=== PATIENT | male | born 1960 | race Caucasian/White ===

== ENCOUNTER 2018-05-21 10:08 | Outpatient (CLI) | payer BC, SELFPAY ==
--- NOTE | 2018-05-21 10:35 | DI.RAD_ITS ---
SYMPTOM/DIAGNOSIS: BILAT HIP PAIN, M25.551 BILATERAL HIPS: No priors. In the right hip, there is moderate joint space narrowing and mild steve-articular spurring of the acetabulum and the femoral head. In the left hip , there is mild joint space narrowing and steve-articular spurring of the acetabulum and femoral head. There are moderate degenerative changes seen in the lower lumbar spine. The sacroiliac joints and symphysis appear intact. No acute fracture or dislocation is seen. The soft tissues are unremarkable. Vascular calcifications are seen. IMPRESSION: Osteoarthritis of the hips, right greater than left. Moderate degenerative changes noted in the lower lumbar spine.
== END 2018-05-21 10:28 ==
PROVIDERS: PCP Nurse Practitioner Family; Visit Provider Nurse Practitioner Family
DX: M25.551 Pain in right hip (principal); M25.552 Pain in left hip; M16.0 Bilateral primary osteoarthritis of hip
CPT/HCPCS: 73521

== ENCOUNTER 2018-10-22 09:36 | Outpatient (CLI) | payer BC, SELFPAY ==
[2018-10-22 10:46] LABS: Abs Immature Grans 0.04 k/cumm (0.0-0.09); Absolute Basophil Count 0.03 k/cumm (0.0-0.2); Absolute Eosinophil Count 0.44 k/cumm (0.0-0.7); Absolute Lymphocyte Count 3.07 k/cumm (1.2-3.4); Basophils % 0.3; Eosinophils % 3.9; HCT 43.5 % (40.0-50.0); HGB 14.7 g/dL (13.5-17.5); Immature Grans % 0.4; Lymphocytes % 26.9; Mean Corp. HGB Concentration 33.8 g/dL (32.0-36.0); Mean Corpuscular Hemoglobin 30.9 pg (27.0-33.0); Mean Corpuscular Volume 91.6 fL (80-95); Mean Platelet Volume 9.3 fL (8.0-11.0); Monocytes % 7.9; Neutrophils % 60.6; Platelet Count 343 x1000/uL (130-400); RBC 4.75 m/cumm (4.50-6.00); RBC Distribution Width 13.1 % (11.8-14.1)
[2018-10-22 10:47] LABS: Absolute Neutrophil Count 6.91 k/cumm (1.2-6.7)
== END 2018-10-22 09:56 ==
PROVIDERS: PCP Nurse Practitioner Family; Visit Provider Nurse Practitioner Family
DX: R06.09 Other forms of dyspnea (principal)
CPT/HCPCS: 36415; 85025

== ENCOUNTER 2018-10-22 11:39 | Outpatient (CLI) | payer BC, SELFPAY ==
--- NOTE | 2018-10-22 09:30 | DI.RAD_ITS ---
SYMPTOM/DIAGNOSIS: ? PULMONARY FIBROSIS, MILD INTERMITTENT ASTHMA, DYSPNEA ON EXERTION, J45.20, R06.09 PA AND LATERAL CHEST: Comparison is made with 02/12/15. Heart size and pulmonary vasculature are within normal limits. The lungs are clear. No significant interstitial disease is present. No effusions or pneumothoraces are identified. The lungs appear hyperinflated suggesting underlying COPD. Degenerative changes are seen in the spine. IMPRESSION: Findings suggestive of COPD. If there is continued concern for interstitial disease, a noncontrast high resolution CT scan may be considered.
== END 2018-10-22 11:59 ==
PROVIDERS: PCP Nurse Practitioner Family; Visit Provider Nurse Practitioner Family
DX: R06.09 Other forms of dyspnea (principal); J45.20 Mild intermittent asthma, uncomplicated; J44.9 Chronic obstructive pulmonary disease, unspecified
CPT/HCPCS: 71046

== ENCOUNTER 2018-11-01 00:32 | Outpatient (CLI) | payer BC, SELFPAY ==
--- NOTE | 2018-11-01 14:00 | MERGE_ITS ---
*[facility]* *[facility]* [address] [place] [address] Date of study: 11/01/2018 Transthoracic Echocardiography M-mode, complete 2D, complete spectral Doppler, and color Doppler *STUDY CONCLUSIONS* Impressions: Normal LV/RV, mildly dilated aortic root. Summary: 1. Left ventricle: The cavity size was normal. Wall thickness was increased in a pattern of mild LVH. Systolic function was normal. The estimated ejection fraction was 55-60%. Wall motion was normal; there were no regional wall motion abnormalities. 2. Aortic root: The aortic root was mildly dilated. 3. Ascending aorta: The ascending aorta was at upper normal limits. 4. Mitral valve: There was mild regurgitation. 5. Left atrium: The atrium was mildly to moderately dilated. 6. Right ventricle: The cavity size was normal. Wall thickness was normal. Systolic function was normal. 7. Tricuspid valve: There was mild-moderate regurgitation. 8. Pulmonary arteries: Pulmonary systolic pressure was mildly increased. PA peak pressure: 38mm Hg (S). *PATIENT PRESENTATION* Height: 180.3cm ((71in) ) S/D Pressure: 125 / 69 Weight: 86.2kg ((189.6lb) ) BSA: 2.09m^2 Test start time: 02:00 PM. Test stop time: 03:00 PM. PERFORMING Unknown PERFORMING [facility] PATTERN DRAFTER Adele Tapia, RT (R)(CT), RDCS ORDERING Phyllis Kirkland REFERRING Phyllis Kirkland *PROCEDURE DATA* Procedure information: The patient was identified by two identifiers. This study was interpreted by [facility]. Pertinent images and digital data are archived for permanent storage and are available for subsequent review. No prior study was available for comparison. Study status: Routine. Transthoracic echocardiography. M-mode, complete 2D, complete spectral Doppler, and color Doppler. A Transthoracic Echocardiogram was performed. Scanning was performed from the parasternal, apical, subcostal, and suprasternal notch acoustic windows. Images were obtained using an [id number] cardiac ultrasound machine. Image quality was fair. Study completion: The patient tolerated the procedure well. History: PMH: New RBBB r/o structural heart disease. R06.09, i45.10. *CARDIAC ANATOMY* Left ventricle: The cavity size was normal. Wall thickness was increased in a pattern of mild LVH. Systolic function was normal. The estimated ejection fraction was 55-60%. Wall motion was normal; there were no regional wall motion abnormalities. Aortic valve: Trileaflet; normal thickness leaflets. Mobility was not restricted. Doppler: Transvalvular velocity was within the normal range. There was no stenosis. There was no significant regurgitation. VTI ratio of LVOT to aortic valve: 0.79. Valve area (VTI): 3cm^2. Indexed valve area (VTI): 1.4cm^2/m^2. Peak velocity ratio of LVOT to aortic valve: 0.69. Valve area (Vmax): 2.7cm^2. Indexed valve area (Vmax): 1.3cm^2/m^2. Mean velocity ratio of LVOT to aortic valve: 0.62. Valve area (Vmean): 2.4cm^2. Indexed valve area (Vmean): 1.1cm^2/m^2. Mean gradient (S): 4.8mm Hg. Peak gradient (S): 9.5mm Hg. Aorta: Aortic root: The aortic root was mildly dilated. Ascending aorta: The ascending aorta was at upper normal limits. Mitral valve: Moderately thickened leaflets. Mobility was not restricted. Doppler: Transvalvular velocity was within the normal range. There was no evidence for stenosis. There was mild regurgitation. Valve area by pressure half-time: 2.4cm^2. Indexed valve area by pressure half-time: 1.2cm^2/m^2. Left atrium: The atrium was mildly to moderately dilated. Atrial septum: There was increased thickness of the septum, consistent with lipomatous hypertrophy. Right ventricle: The cavity size was normal. Wall thickness was normal. Systolic function was normal. Pulmonic valve: Poorly visualized. Doppler: Transvalvular velocity was within the normal range. There was no evidence for stenosis. There was mild regurgitation. Peak gradient (S): 5mm Hg. Tricuspid valve: Structurally normal valve. Doppler: Transvalvular velocity was within the normal range. There was no evidence for stenosis. There was mild-moderate regurgitation. Pulmonary artery: Poorly visualized. Pulmonary systolic pressure was mildly increased. Right atrium: The atrium was normal in size. Pericardium: There was no pericardial effusion. Systemic veins: Inferior vena cava: Well visualized. The vessel was patent and upper normal size. The respirophasic diameter changes were in the normal range (greater than or equal to 50%), consistent with normal central venous pressure. Measurements Left ventricle Value Reference LV ID, ED, PLAX 5.3 cm 3.5 - 6.0 LV ID, ES, PLAX 3.6 cm 2.1 - 4.0 LV PW thickness, ED, PLAX 1.2 cm LV end-diastolic volume, 1-p A2C 98 ml LV ejection fraction, 1-p A2C 56 % LV end-diastolic volume, 1-p A4C 119 ml LV ejection fraction, 1-p A4C 64 % LV e', lateral 0.093 m/sec LV E/e', lateral 6 LV e', medial 0.064 m/sec LV E/e', medial 8 LV e', average 0.079 m/sec LV E/e', average 7 Ventricular septum Value Reference IVS thickness, ED, PLAX 1.2 cm LVOT Value Reference LVOT ID, A-P 2.2 cm LVOT area 3.8 cm^2 LVOT peak velocity, S 1.07 m/sec LVOT mean velocity, S 0.65 m/sec LVOT VTI, S 22.8 cm LVOT peak gradient, S 4.6 mm Hg LVOT mean gradient, S 2 mm Hg Stroke volume (SV), LVOT DP 87 ml Stroke index (SV/bsa), LVOT DP 42 ml/m^2 Aortic valve Value Reference Aortic valve peak velocity, S 1.5 m/sec Aortic valve mean velocity, S 1.04 m/sec Aortic valve VTI, S 29.0 cm Aortic mean gradient, S 4.8 mm Hg Aortic peak gradient, S 9.5 mm Hg VTI ratio, LVOT/AV 0.79 Aortic valve area, VTI 3 cm^2 Velocity ratio, peak, LVOT/AV 0.69 Aortic valve area, peak velocity 2.7 cm^2 Velocity ratio, mean, LVOT/AV 0.62 Aortic valve area, mean velocity 2.4 cm^2 Aortic valve area/bsa, mean velocity 1.1 cm^2/m^2 Aorta Value Reference Aortic root ID, ED 4.1 cm Ascending aorta ID, A-P, S 3.5 cm Left atrium Value Reference LA ID, A-P, ES 2.9 cm LA ID/bsa, A-P 1.4 cm/m^2 <=2.2 LA area, ES, A4C (H) 25 cm^2 8.8 - 23.4 LA area, ES, A2C 16 cm^2 LA volume/bsa, ES, 1-p A4C 44 ml/m^2 LA volume, ES, 2-p 57 ml LA volume/bsa, ES, 2-p 27 ml/m^2 LA/aortic root ratio 0.72 Mitral valve Value Reference Mitral E-wave peak velocity 0.52 m/sec Mitral A-wave peak velocity 0.57 m/sec Mitral deceleration time (H) 313 ms 150 - 230 Mitral pressure half-time 91 ms Mitral E/A ratio, peak 0.9 Mitral valve area, PHT, DP 2.4 cm^2 Pulmonary veins Value Reference Pulmonary vein peak velocity, S 0.79 m/sec Pulmonary vein peak velocity, D 0.43 m/sec Pulmonary vein velocity ratio, peak, 1.85 S/D Pulmonary vein A-wave reversal peak 0.32 m/sec velocity Pulmonary arteries Value Reference PA pressure, S, DP (H) 38 mm Hg <=30 Tricuspid valve Value Reference Tricuspid regurg peak velocity 2.9 m/sec Tricuspid peak RV-RA gradient 33.1 mm Hg Right atrium Value Reference RA area, ES, A4C 14.6 cm^2 8.3 - 19.5 Systemic veins Value Reference Estimated CVP 10 mm Hg Right ventricle Value Reference RV pressure, S, DP (H) 43 mm Hg <=30 Pulmonic valve Value Reference Pulmonic peak gradient, S 5 mm Hg Legend: (L) and (H) myla values outside specified reference range. I have personally reviewed the images and have reviewed and edited the reported findings. Electronically signed by Brittany Scott 11/01/2018 18:30
== END 2018-11-01 00:52 ==
PROVIDERS: PCP Nurse Practitioner Family; Visit Provider Nurse Practitioner Family
DX: R06.09 Other forms of dyspnea (principal); I45.10 Unspecified right bundle-branch block; I51.7 Cardiomegaly; I36.1 Nonrheumatic tricuspid (valve) insufficiency
CPT/HCPCS: 93306

== ENCOUNTER 2018-11-01 02:46 | Outpatient (CLI) | payer BC, SELFPAY ==
--- NOTE | 2018-11-01 | PFT_ITS ---
PULMONARY FUNCTION TEST REPORT Patient - Jai Bird [birth year] DATE OF SERVICE 11/01/18 REQUESTING PROVIDER Phyllis Kirkland N.P. INTERPRETATION OF STUDY Spirometry shows mild obstructive airways disease with no significant bronchodilator response. LUNG VOLUMES - Lung volumes show no evidence of restriction. DIFFUSION CAPACITY- Normal. AIRWAY RESISTANCE - Normal. IMPRESSION Mild obstructive airways disease with no significant bronchodilator response. Clinical correlation recommended. Jalyn Gamboa M.D. GERTRUDIS/ DD 11/07/18 DT 11/07/18
[2018-11-01] MEDS: Inhaler, Assist Device 1 EACH MC (16:41)
[2018-11-01] MEDS: Albuterol HFA 18 GM 200 PUFF INH IH (16:41)
== END 2018-11-01 03:06 ==
PROVIDERS: PCP Nurse Practitioner Family; Visit Provider Nurse Practitioner Family
DX: R06.09 Other forms of dyspnea (principal)
CPT/HCPCS: 94060; 94150; 94726; 94729

== ENCOUNTER 2019-05-16 01:27 | Outpatient (CLI) | payer BC, SELFPAY ==
[2019-05-16 10:25] LABS: ALT 51 U/L (16-63); AST 25 U/L (15-37); Albumin 4.1 g/dL (3.4-5.0); Alkaline Phosphatase 96 U/L (46-116); Anion Gap 8.6 mmol/L (3-11); BUN 15 mg/dL (7-18); Bilirubin, Total 0.6 mg/dL (0.2-1.0); CO2 30.4 mmol/L (21.0-32.0); Calcium 9.3 mg/dL (8.5-10.1); Calculated LDL 111 mg/dL; Chloride 102 mmol/L (98-107); Cholesterol 217 mg/dL (50-200); Glucose 108 mg/dL (70-100); HDL Cholesterol 73 mg/dL (40-60); Potassium 4.7 mmol/L (3.5-5.1); Sodium 141 mmol/L (136-145); TSH (W/Ref FT4) 1.67 uIU/mL (0.36-3.74); Total Protein 7.7 g/dL (6.4-8.2); Triglyceride 167 mg/dL (30-150)
== END 2019-05-16 01:47 ==
PROVIDERS: PCP Nurse Practitioner Family; Visit Provider Nurse Practitioner Family
DX: E78.5 Hyperlipidemia, unspecified (principal); I10 Essential (primary) hypertension; E03.9 Hypothyroidism, unspecified
CPT/HCPCS: 36415; 80053; 80061; 84443

== ENCOUNTER 2019-08-22 09:46 | Outpatient (CLI) | payer BC, SELFPAY ==
[2019-08-23 11:09] LABS: Lyme Ab w Rflx to Lyme Confirm Negative (Negative)
== END 2019-08-22 10:06 ==
PROVIDERS: PCP Nurse Practitioner Family; Visit Provider Nurse Practitioner Adult Health
DX: M25.50 Pain in unspecified joint (principal)
CPT/HCPCS: 36415; 86618

== ENCOUNTER 2020-08-13 03:04 | Outpatient (CLI) | payer OTHER, SELFPAY ==
[2020-08-13 11:34] LABS: Hemoglobin A1C 5.7 % (<5.7)
[2020-08-13 12:19] LABS: ALT 45 U/L (16-63); AST 26 U/L (15-37); Albumin 4.2 g/dL (3.4-5.0); Alkaline Phosphatase 82 U/L (46-116); Anion Gap 8.1 mmol/L (3-11); BUN 14 mg/dL (7-18); Bilirubin, Total 0.4 mg/dL (0.2-1.0); CO2 28.9 mmol/L (21.0-32.0); CREATININE 1.03 mg/dL (0.70-1.30); Calcium 9.1 mg/dL (8.5-10.1); Calculated LDL 101 mg/dL (<100); Chloride 102 mmol/L (98-107); Cholesterol 201 mg/dL (<200); Glucose 94 mg/dL (74-106); HDL Cholesterol 81 mg/dL (40-60); Potassium 4.2 mmol/L (3.5-5.1); Sodium 139 mmol/L (136-145); Total Protein 7.6 g/dL (6.4-8.2); Triglyceride 96 mg/dL (<150)
== END 2020-08-13 03:24 ==
PROVIDERS: PCP Nurse Practitioner Family; Visit Provider Nurse Practitioner Family
DX: E03.9 Hypothyroidism, unspecified (principal); E78.5 Hyperlipidemia, unspecified; I10 Essential (primary) hypertension; R73.01 Impaired fasting glucose
CPT/HCPCS: 36415; 80053; 80061; 83036; 84443